=== PATIENT | female | born 1945 | race Caucasian/White ===

== ENCOUNTER 2022-03-24 10:46 | Outpatient (CLI) | payer MEDICARE, BC, SELFPAY | END 2022-03-24 10:47 | disposition home or self-care (01) | PROVIDERS: Visit Provider Nurse Practitioner Family | DX: L89.154 Pressure ulcer of sacral region, stage 4 (principal); G31.83 Neurocognitive disorder with Lewy bodies; R26.9 Unspecified abnormalities of gait and mobility; N39.46 Mixed incontinence | CPT/HCPCS: 11042 ==

== ENCOUNTER 2022-03-31 10:22 | Outpatient (CLI) | payer MEDICARE, BC, SELFPAY | END 2022-03-31 10:23 | disposition home or self-care (01) | LOC: WOUND 10:23 | PROVIDERS: Visit Provider Physician Assistant Surgical | DX: L89.154 Pressure ulcer of sacral region, stage 4 (principal); R26.9 Unspecified abnormalities of gait and mobility; G31.83 Neurocognitive disorder with Lewy bodies; N39.46 Mixed incontinence | CPT/HCPCS: 11043 ==

== ENCOUNTER 2022-04-07 10:34 | Outpatient (CLI) | payer MEDICARE, BC, SELFPAY | END 2022-04-07 10:35 | disposition home or self-care (01) | LOC: WOUND 10:43 | PROVIDERS: Visit Provider Physician Assistant Surgical | DX: L89.154 Pressure ulcer of sacral region, stage 4 (principal); G31.83 Neurocognitive disorder with Lewy bodies; R26.9 Unspecified abnormalities of gait and mobility; N39.46 Mixed incontinence | CPT/HCPCS: 11043 ==

== ENCOUNTER 2022-04-14 10:24 | Outpatient (CLI) | payer MEDICARE, BC, SELFPAY | END 2022-04-14 10:25 | disposition home or self-care (01) | LOC: WOUND 10:24 | PROVIDERS: Visit Provider Physician Assistant Surgical | DX: L89.154 Pressure ulcer of sacral region, stage 4 (principal) | CPT/HCPCS: 11043 ==

== ENCOUNTER 2022-05-05 10:46 | Outpatient (CLI) | payer MEDICARE, BC, SELFPAY | END 2022-05-05 10:47 | disposition home or self-care (01) | LOC: WOUND 10:47 | PROVIDERS: Visit Provider Physician Assistant Surgical | DX: L89.154 Pressure ulcer of sacral region, stage 4 | CPT/HCPCS: 99212 ==